=== PATIENT | male | born 1950 | race Caucasian/White ===

== ENCOUNTER → 2017-05-10 | Outpatient (CLI) | payer MEDICARE ==
--- NOTE | 2017-05-10 12:37 | ECHOS ---
STRESS ECHOCARDIOGRAM AGE: 66 SEX: M HT: 64 WT: 165 PROTOCOL: Stress Echo STAGE: 2 DURATION OF EXERCISE: 6:00 HEART RATE REST: 94 BLOOD PRESSURE REST: 140/67 MAXIMUM HEART RATE ACHIEVED: 133 MAXIMUM BLOOD PRESSURE: 202/93 85% MPHR: 129 100% MPHR: 152 METS: 7.1 INDICATIONS: CLINICAL INFORMATION: Patient was exercised for a total area of 6 minutes. A peak heart rate of 132 was achieved, maximum blood pressure of 202/93 mmHg was noted. The resting EKG shows normal sinus rhythm with normal SD interval and QRS duration and normal ST-T waves. Occasional PVCs were noted. The patient did not complain of any chest pain during the test. The base line echocardiographic images reveals normal left ventricular chamber size with normal left ventricular systolic function. In the immediate post exercise period and normal increase in the wall thickness and contractility was noted. IMPRESSION: 1. This stress echocardiographic study is negative for stress-induced ischemia. The patient's exercise tolerance is normal. 2. EKG portion of the stress test is not suggestive of ischemia. The patient did not complain of any anginal pain during the test. 3. Occasional PVCs were noted. MMODL / IJN: [id number] /
== END ==
LOC: RADNMMAIN 09:53
PROVIDERS: ATTEND Family Medicine
DX: R94.31 Abnormal electrocardiogram [ECG] [EKG] (principal)
CPT/HCPCS: 93017; 93350

== ENCOUNTER → 2018-02-03 | Outpatient (CLI) | payer MEDICARE ==
--- NOTE | 2018-02-03 13:39 | XR ---
EXAMINATION TYPE: XR lumbar spine 2 or 3V DATE OF EXAM: 02/03/2018 COMPARISON: 04/21/2017 HISTORY: 67-year-old male abnormalities of gait and mobility, lower back and pelvic pain. TECHNIQUE: 3 views FINDINGS: 5 lumbar type vertebral bodies. Undulating curvature could represent underlying scoliosis. There are calcifications on both sides of the abdomen, suspected to represent nephrolithiasis measuring up to 5 mm on the right and 6 m on the left. Mild to moderate disc space narrowing throughout and endplate spondylosis. Facet arthropathy lower james mbar spine with grade 1 anterolisthesis at L4-L5. Vertebral body heights are preserved and alignment is maintained. IMPRESSION: 1. Moderate multilevel degenerative disc disease. 2. Facet arthropathy mid to lower lumbar spine with grade 1 anterolisthesis at L4-L5. 3. No vertebral compression collapse. 4. Bilateral nephrolithiasis.
== END | disposition home or self-care (01) ==
LOC: RADXRMAIN 09:38
PROVIDERS: ATTEND Family Medicine
DX: M43.16 Spondylolisthesis, lumbar region (principal); M51.36 Other intervertebral disc degeneration, lumbar region; M46.96 Unspecified inflammatory spondylopathy, lumbar region
CPT/HCPCS: 72100

== ENCOUNTER 2018-07-05 06:38 | Day surgery (SDC) | payer MEDICARE ==
[2018-07-03 09:27] VITALS: BMI 28.3
[~2018-07-05 06:38] MED LIST: LACTATED RINGERS 1,000 ML IV SCH; LIDOCAINE 1% 20 ML VIAL (10MG/ML) FOR IV START INTRADERMA PRN
[2018-07-05 07:18] VITALS: RESP 18
[2018-07-05 07:19] VITALS: TEMP 98
--- NOTE | 2018-07-05 07:21 | P.GSHP ---
History of Present Illness H&P Date: 07/05/18 CHIEF COMPLAINT: Colon screen HISTORY OF PRESENT ILLNESS: The patient is a 68-year-old male who presents for colon screen. Lower endoscopy was offered for further evaluation and management. PAST MEDICAL HISTORY: Please see list. PAST SURGICAL HISTORY: Please see list. MEDICATIONS: Please see list. ALLERGIES: Please see list. SOCIAL HISTORY: No illicit drug use FAMILY HISTORY: No reports of Crohn disease or ulcerative colitis. REVIEW OF ORGAN SYSTEMS: CONSTITUTIONAL: No reports of fevers or chills. PHYSICAL EXAM: VITAL SIGNS: Stable GENERAL: Well-developed pleasant in no acute distress. HEENT: No scleral icterus. Extraocular movements grossly intact. Moist buccal mucosa. NECK: Supple without lymphadenopathy. CHEST: Unlabored respirations. Equal bilateral excursions. CARDIOVASCULAR: Regular rate and rhythm. Distal 2+ pulses. ABDOMEN: Soft, nontender, nondistended. MUSCULOSKELETAL: No clubbing, cyanosis, or edema. ASSESSMENT: 1. Colon screen. PLAN: 1. Recommend proceeding with a lower endoscopy Past Medical History Past Medical History: Coronary Artery Disease (CAD), Cancer, Diabetes Mellitus, Hearing Disorder / Deafness, Hyperlipidemia, Hypertension, Renal Disease Additional Past Medical History / Comment(s): "borderline diabetes",prostate CA 2008-raidiation pellets [email or web address] History of Any Multi-Drug Resistant Organisms: None Reported Past Surgical History: Hernia Repair Additional Past Surgical History / Comment(s): radiation pellets placed to prostate,hernia repairs x2 Past Anesthesia/Blood Transfusion Reactions: No Reported Reaction Smoking Status: Current some day smoker - Past Family History Mother Family Medical History: No Reported History Medications and Allergies Home Medications Medication Instructions Recorded Confirmed Type Aspirin 81 mg PO DAILY 07/03/18 07/03/18 History Benazepril HCl [Lotensin] 20 mg PO QAM 07/03/18 07/03/18 History Ezetimibe [Zetia] 10 mg PO DAILY 07/03/18 07/03/18 History Hydrochlorothiazide [Hydrodiuril] 12.5 mg PO DAILY 07/03/18 07/03/18 History Metoprolol Tartrate [Lopressor] 12.5 mg PO BID 07/03/18 07/03/18 History Simvastatin 20 mg PO HS 07/03/18 07/03/18 History amLODIPine BESYLATE 10 mg PO QAM 07/03/18 07/03/18 History Allergies Allergy/AdvReac Type Severity Reaction Status Date / Time No Known Allergies Allergy Verified 07/03/18 09:11 Surgical - Exam Vital Signs Pulse Resp BP Pulse Ox 73 18 138/82 97 07/05/18 07:17 07/05/18 07:17 07/05/18 07:17 07/05/18 07:17
[2018-07-05] MEDS ORDERED: PROPOFOL 10 MG/ML 20 ML VIAL IV ONE (07:27)
[2018-07-05] MEDS ORDERED: LACTATED RINGERS 1,000 ML IV ONE ×2 (07:28)
--- NOTE | 2018-07-05 07:50 | P.PCN ---
Date of Procedure: 07/05/18 Description of Procedure: PREOPERATIVE DIAGNOSIS: Colonoscopy screening, first POSTOPERATIVE DIAGNOSIS: Colonoscopy screening, first Sigmoid tubular adenomas Sigmoid diverticulosis Pandiverticulosis OPERATION: Colonoscopy to the ileocecal valve and appendiceal orifice. Colonoscopy with multiple hot snare polypectomies SURGEON: Erica Marshall MD. ANESTHESIA: MAC. INDICATIONS: The patient is a 68-year-old male who presents for his first colonoscopy screening. Benefits and risks were described and informed consent was obtained. DESCRIPTION OF PROCEDURE: The patient had undergone Gatorade, MiraLAX and Dulcolax prep. He had been brought into the operating room and laid in the left lateral decubitus position. After adequate intravenous sedation, the rectum was examined with 2% lidocaine jelly. No external hemorrhoids were encountered. The prostate was smooth and without nodularity. The rectal tone was within normal limits. No lesions were palpated in the rectal vault. An Olympus colonoscope was advanced until the ileocecal valve and appendiceal orifice were clearly viewed. The prep was excellent with visualization of the mucosal folds. The scope was removed with visualization of each mucosal fold. Scattered diverticulosis with severe sigmoid diverticulosis was encountered. Sigmoid colonic polyps were found and snare polypectomy. No evidence of focal colitis was found. Retroflexion of the scope demonstrated grade 1 internal hemorrhoids without active bleeding or inflammation. The colon was desufflated. The patient had tolerated the procedure well. Withdrawal time was over 6 minutes. FINDINGS: Internal hemorrhoids, grade 1 No external hemorrhoids, grade 2. No arteriovenous malformations. Pandiverticulosis with sigmoid diverticulosis Removal of 3 polyps: - Snare polypectomy 30 cm from the anal verge, 5 mm tubulovillous adenoma polyp , sigmoid colon - Snare polypectomy 40 cm from the anal verge, 8 mm tubulovillous adenoma polyp , descending colon No focal colitis. RECOMMENDATIONS: Given severity of tubular adenomas, recommend repeat colonoscopy 2 years, 2020. Plan - Discharge Summary New Discharge Prescriptions: No Action Hydrochlorothiazide [Hydrodiuril] 12.5 mg PO DAILY Aspirin 81 mg PO DAILY amLODIPine BESYLATE 10 mg PO QAM Ezetimibe [Zetia] 10 mg PO DAILY Benazepril HCl [Lotensin] 20 mg PO QAM Simvastatin 20 mg PO HS Metoprolol Tartrate [Lopressor] 12.5 mg PO BID Discharge Medication List Aspirin 81 mg PO DAILY 07/03/18 [History] Benazepril HCl [Lotensin] 20 mg PO QAM 07/03/18 [History] Ezetimibe [Zetia] 10 mg PO DAILY 07/03/18 [History] Hydrochlorothiazide [Hydrodiuril] 12.5 mg PO DAILY 07/03/18 [History] Metoprolol Tartrate [Lopressor] 12.5 mg PO BID 07/03/18 [History] Simvastatin 20 mg PO HS 07/03/18 [History] amLODIPine BESYLATE 10 mg PO QAM 07/03/18 [History]
[2018-07-05 07:53] LABS: Glucose,Whole Blood 124 mg/dL (75-99)
[2018-07-05 08:19] VITALS: BP 119/78; PULSE 66
== END 2018-07-05 08:53 | disposition home or self-care (01) ==
LOC: ORWHC2ENDO 06:38
PROVIDERS: ATTEND Surgery Plastic and Reconstructive Surgery
DX: D12.5 Benign neoplasm of sigmoid colon (principal); K57.30 Diverticulosis of large intestine without perforation or abscess without bleeding; K64.0 First degree hemorrhoids; I25.10 Atherosclerotic heart disease of native coronary artery without angina pectoris; R73.03 Prediabetes; H91.90 Unspecified hearing loss, unspecified ear; E78.5 Hyperlipidemia, unspecified; I10 Essential (primary) hypertension; N28.9 Disorder of kidney and ureter, unspecified; I25.2 Old myocardial infarction; F17.200 Nicotine dependence, unspecified, uncomplicated; Z79.82 Long term (current) use of aspirin; Z79.899 Other long term (current) drug therapy; Z85.46 Personal history of malignant neoplasm of prostate; Z92.3 Personal history of irradiation
CPT/HCPCS: 88305; 45385; J2704

== ENCOUNTER 2020-07-24 07:38 | Day surgery (SDC) | payer MEDICARE ==
[2020-07-22 13:29] VITALS: BMI 29.1
[~2020-07-24 07:38] MED LIST changes: +LIDOCAINE 1% (10MG/ML) FOR IV START INTRADERMA PRN; -LIDOCAINE 1% 20 ML VIAL (10MG/ML) FOR IV START INTRADERMA PRN
--- NOTE | 2020-07-24 08:21 | P.GSHP ---
History of Present Illness H&P Date: 07/24/20 CHIEF COMPLAINT: Colon screen HISTORY OF PRESENT ILLNESS: The patient is a 70-year-old male who presents for colon screen. Lower endoscopy was offered for further evaluation and management. PAST MEDICAL HISTORY: Please see list. PAST SURGICAL HISTORY: Please see list. MEDICATIONS: Please see list. ALLERGIES: Please see list. SOCIAL HISTORY: No illicit drug use FAMILY HISTORY: No reports of Crohn disease or ulcerative colitis. REVIEW OF ORGAN SYSTEMS: CONSTITUTIONAL: No reports of fevers or chills. PHYSICAL EXAM: VITAL SIGNS: Stable GENERAL: Well-developed pleasant in no acute distress. HEENT: No scleral icterus. Extraocular movements grossly intact. Moist buccal mucosa. NECK: Supple without lymphadenopathy. CHEST: Unlabored respirations. Equal bilateral excursions. CARDIOVASCULAR: Regular rate and rhythm. Distal 2+ pulses. ABDOMEN: Soft, nontender, nondistended. MUSCULOSKELETAL: No clubbing, cyanosis, or edema. ASSESSMENT: 1. Colon screen. PLAN: 1. Recommend proceeding with a lower endoscopy Past Medical History Past Medical History: Coronary Artery Disease (CAD), Cancer, Diabetes Mellitus, Hearing Disorder / Deafness, Hyperlipidemia, Hypertension, Renal Disease Additional Past Medical History / Comment(s): "borderline diabetes",prostate CA 2008-raidiation pellets [email or web address] History of Any Multi-Drug Resistant Organisms: None Reported Past Surgical History: Hernia Repair Additional Past Surgical History / Comment(s): radiation pellets placed to prostate,hernia repairs x2 Past Anesthesia/Blood Transfusion Reactions: No Reported Reaction Past Psychological History: No Psychological Hx Reported Smoking Status: Former smoker Past Alcohol Use History: None Reported Additional Past Alcohol Use History / Comment(s): quit smoking cigarettes 40 years, smokes marijuana daily Past Drug Use History: Marijuana - Past Family History Mother Family Medical History: No Reported History Medications and Allergies Home Medications Medication Instructions Recorded Confirmed Type Aspirin 81 mg PO DAILY 07/03/18 07/22/20 History Benazepril HCl [Lotensin] 20 mg PO QAM 07/03/18 07/22/20 History Ezetimibe [Zetia] 10 mg PO DAILY 07/03/18 07/22/20 History Metoprolol Tartrate [Lopressor] 12.5 mg PO BID 07/03/18 07/22/20 History Simvastatin 20 mg PO HS 07/03/18 07/22/20 History amLODIPine BESYLATE 10 mg PO QAM 07/03/18 07/22/20 History hydroCHLOROthiazide [Hydrodiuril] 12.5 mg PO DAILY 07/03/18 07/22/20 History Allergies Allergy/AdvReac Type Severity Reaction Status Date / Time No Known Allergies Allergy Verified 07/22/20 12:59
[2020-07-24 08:38] VITALS: TEMP 97.2
[2020-07-24] MEDS ORDERED: PROPOFOL 10 MG/ML 20 ML VIAL IV ONE (09:35)
--- NOTE | 2020-07-24 10:03 | P.PCN ---
Date of Procedure: 07/24/20 Description of Procedure: PREOPERATIVE DIAGNOSIS: Personal history colon polyps Colonoscopy screening. POSTOPERATIVE DIAGNOSIS: Personal history colon polyps Colonoscopy screening. OPERATION: Colonoscopy to the cecum, ileocecal valve and appendiceal orifice. SURGEON: Erica Marshall MD. ANESTHESIA: MAC. INDICATIONS: The patient is a 70-year-old male who presents for colonoscopy screening. He has history of polyps. Last colonoscopy 3 years ago. Benefits and risks were described and informed consent was obtained. DESCRIPTION OF PROCEDURE: The patient had undergone Suprep. She had been brought into the operating room and laid in the left lateral decubitus position. After adequate intravenous sedation, the rectum was examined with 2% lidocaine jelly. No external hemorrhoids were encountered. The prostate was unremarkable. The rectal tone was within normal limits. No lesions were palpated in the rectal vault. An Olympus colonoscope was advanced until the cecum, ileocecal valve and appendiceal orifice were clearly viewed. The prep was poor limiting view of the mucosa. Scattered sigmoid diverticulosis was encountered. The sigmoid colon was highly redundant and abdominal wall pressure to advance the scope. No large colonic polyps were found. No evidence of focal colitis was found. Retroflexion of the scope demonstrated grade 1 internal hemorrhoids without active bleeding or inflammation. The colon was desufflated. The patient had tolerated the procedure well. Withdrawal time was over 6 minutes. FINDINGS: Aronchick preparation quality scale 3 (1-5) with less than adequate prep limiting complete review of mucosa Internal hemorrhoids, grade 1 No external prolapsed hemorrhoids. No arteriovenous malformations. No adenomatous polyps. No focal colitis. Sigmoid diverticulosis Redundant sigmoid colon RECOMMENDATIONS: Lower endoscopy in 3 years, 2023 Recommend more effective bowel prep Plan - Discharge Summary Discharge Rx Participant: No New Discharge Prescriptions: Continue hydroCHLOROthiazide [Hydrodiuril] 12.5 mg PO DAILY Aspirin 81 mg PO DAILY amLODIPine BESYLATE 10 mg PO QAM Ezetimibe [Zetia] 10 mg PO DAILY Benazepril HCl [Lotensin] 20 mg PO QAM Simvastatin 20 mg PO HS Metoprolol Tartrate [Lopressor] 12.5 mg PO BID Discharge Medication List Aspirin 81 mg PO DAILY 07/03/18 [History] Benazepril HCl [Lotensin] 20 mg PO QAM 07/03/18 [History] Ezetimibe [Zetia] 10 mg PO DAILY 07/03/18 [History] Metoprolol Tartrate [Lopressor] 12.5 mg PO BID 07/03/18 [History] Simvastatin 20 mg PO HS 07/03/18 [History] amLODIPine BESYLATE 10 mg PO QAM 07/03/18 [History] hydroCHLOROthiazide [Hydrodiuril] 12.5 mg PO DAILY 07/03/18 [History] Follow up Appointment(s)/Referral(s): Erica Marshall MD [STAFF PHYSICIAN] - As Needed Patient Instructions/Handouts: Diverticulosis (GEN), Diverticulosis Diet (GEN) Activity/Diet/Wound Care/Special Instructions: Repeat colonoscopy in 3 years, 2023 Discharge Disposition: HOME SELF-CARE
[2020-07-24 10:13] VITALS: RESP 16
[2020-07-24 10:40] VITALS: BP 132/81; PULSE 67
== END 2020-07-24 10:55 | disposition home or self-care (01) ==
LOC: ORWHC2ENDO 07:38
PROVIDERS: ATTEND Surgery Plastic and Reconstructive Surgery
DX: Z12.11 Encounter for screening for malignant neoplasm of colon (principal); K64.0 First degree hemorrhoids; Q43.8 Other specified congenital malformations of intestine; Z86.010 Personal history of colon polyps; Z79.82 Long term (current) use of aspirin; Z79.899 Other long term (current) drug therapy; I10 Essential (primary) hypertension; I25.10 Atherosclerotic heart disease of native coronary artery without angina pectoris; E78.5 Hyperlipidemia, unspecified; E11.9 Type 2 diabetes mellitus without complications; Z85.46 Personal history of malignant neoplasm of prostate; H91.90 Unspecified hearing loss, unspecified ear; Z92.3 Personal history of irradiation; Z98.890 Other specified postprocedural states; Z87.891 Personal history of nicotine dependence
CPT/HCPCS: J2704; G0105; 45378

== ENCOUNTER → 2020-08-12 | Outpatient (CLI) | payer MEDICARE ==
[2020-08-12 12:15] LABS: African American GFR (CKD) >90 (>60 ml/min/1.73 sqM); Blood Urea Nitrogen 15 mg/dL (9-20); Non-African American GFR(CKD) 90 (>60 ml/min/1.73 sqM)
--- NOTE | 2020-08-12 14:12 | CT ---
EXAMINATION TYPE: CT abdomen pelvis w con DATE OF EXAM: 08/12/2020 COMPARISON: None HISTORY: LLQ and lower left flank pain CT DLP: 1282.7 mGycm Automated exposure control for dose reduction was used. CONTRAST: CT scan of the abdomen pelvis is performed with IV Contrast, patient injected with 100 mL of Isovue 3 00. FINDINGS- LUNG BASES-or subsegmental changes at both lung bases most typical of atelectasis. Heart is enlarged and there is dense coronary artery atherosclerotic changes. 2 mm nodule axial image 6 series 4 2 smal l to characterize. LIVER/GB- No gross abnormality is appreciated. PANCREAS-there are calcifications involving the pancreas correlate for history of chronic pancreatiti s.. SPLEEN- No gross abnormality is seen. ADRENALS-mild thickening of the right adrenal gland with a 8 mm nodule involving the left adrenal gla nd too small to characterize but likely related to an adrenal benign adenoma.. KIDNEYS/BLADDER-no hydronephrosis. There are multiple hypodense lesions involving the kidneys bilater ally the majority of which are too small to characterized largest of which measures 15 Hounsfield uni ts and 2.2 cm suggestive of a simple cyst. There are multiple bilateral renal calculi all measuring l ess than 5 mm.. BOWEL-gas pattern is nonspecific with no evidence of obstruction. There are scattered diverticula see n with no diagnostic evidence of diverticulitis. Localized area of narrowing of the sigmoid colon may be related to peristalsis. If there is concern for mucosal lesion correlate with direct visualizatio n.. LYMPH NODES- No greater than 1cm abdominal or pelvic lymph nodes areappreciated. OSSEOUS STRUCTURES-hypertrophic and degenerative changes of the spine.. OTHER- evidence of prostate seeding are noted correlate clinically. Atherosclerotic change of the ao rta without evidence of aneurysm. Bilateral fat-containing inguinal hernia. IMPRESSION- 1. Multiple sub-5 mm bilateral renal calculi with no hydronephrosis. Multiple hypodense lesions are t oo small to characterize but statistically most likely related to simple cyst. 2. Correlate for chronic pancreatitis. 3. Diverticulosis with no CT evidence of diverticulitis. Localized area of narrowing of the sigmoid c olon may be related to peristalsis rather than mucosal lesion correlate with direct visualization as clinically warranted. 4. Cardiomegaly with coronary artery atherosclerotic changes. 3 5 2 mm subpleural nodule right middle lobe axial image 6 2 small to characterize recommend 12 month follow-up CT scan to confirm stability .
== END | disposition home or self-care (01) ==
LOC: RADCTMAIN 11:34
PROVIDERS: ATTEND Surgery Plastic and Reconstructive Surgery
DX: K57.90 Diverticulosis of intestine, part unspecified, without perforation or abscess without bleeding (principal); N20.0 Calculus of kidney; K56.699 Other intestinal obstruction unspecified as to partial versus complete obstruction
CPT/HCPCS: 82565; 84520; 74177; Q9967

== ENCOUNTER → 2024-04-05 | Outpatient (CLI) | payer OTHER ==
--- NOTE | 2024-04-05 13:06 | US ---
EXAMINATION TYPE: US scrotum with doppler. DATE OF EXAM: 04/05/2024 COMPARISON: NONE CLINICAL INDICATION: Male, 73 years old with history of N50.819 TESTICULAR PAIN; left scrotal pain fo r years, no injury, states small wound will reopen on left side throughout the year and has foul smel l, no wound today TECHNIQUE: Grayscale, color Doppler and spectral Doppler imaging of the scrotum. FINDINGS: EXAM MEASUREMENTS: TESTICLES: Right Testicle: 3.2 x 2.5 x 1.8 cm Left Testicle: 3.6 x 2.2 x 2.1 cm EPIDIDYMIS HEAD: Right Epididymis: 1.3 cm Left Epididymis: 1.5 cm Doppler performed to assess for testicular vascularity; good bilateral color flow and waveforms are s een. There is no evidence of testicular torsion. Presence of hydroceles: bilateral, more on the right then left. The left demonstrates mobile complex debris. Presence of varicoceles: no IMPRESSION: 1. No evidence of testicular torsion or mass. 2. Bilateral hydroceles with right greater than left. Left hydrocele is complex with debris. [facility], , 04/05/2024 1:04 PM
== END | disposition home or self-care (01) ==
LOC: RADUSWWP 12:21
PROVIDERS: ATTEND Family Medicine
CPT/HCPCS: 76870; 93975

== ENCOUNTER → 2024-12-18 | Outpatient (CLI) | payer MEDICARE ==
--- NOTE | 2024-12-18 15:52 | CT ---
EXAMINATION TYPE: CT abdomen pelvis wo con CT DLP: 528.9 mGycm, Automated exposure control for dose reduction was used. DATE OF EXAM: 12/18/2024 3:23 PM COMPARISON: CT abdomen pelvis 08/12/2020, scrotal ultrasound 04/05/2024 CLINICAL INDICATION:Male, 74 years old with history of N20.0 KIDNEY STONE; left testicle cyst, h/o ki dney stones TECHNIQUE: Standard CT of the abdomen and pelvis without IV or oral contrast. Lack of IV or oral co ntrast limits evaluation of solid and hollow organ viscera. Coronal and sagittal reformats were perfo rmed. FINDINGS: LOWER CHEST: Visualized lung bases are clear. Borderline prominent heart size. No pericardial effusio n. ABDOMEN LIVER: Unremarkable noncontrast appearance GALLBLADDER AND BILE DUCTS: Unremarkable noncontrast appearance PANCREAS: Several coarse parenchymal calcifications noted. No surrounding inflammatory changes are fl uid collections. No ductal dilatation is identified. SPLEEN: Unremarkable. ADRENAL GLANDS: Similar mild thickening of both adrenal glands possibly related to hyperplasia. No fo max lesion identified. KIDNEYS AND URETERS: No evidence of hydronephrosis. No hydroureter or ureteral calculus identified. A pproximately 10 nonobstructing right renal calculi with largest measuring up to 6 mm. Approximately 7 nonobstructing left renal calculi with largest measuring up to 7 mm. Multiple bilateral renal cysts identified. No follow-up recommended. Left extrarenal prominent pelvis identified. PELVIS BLADDER: Underdistended with circumferential wall thickening measuring up to 9 mm. REPRODUCTIVE: Brachytherapy seeds within the prostate gland. ABDOMEN & PELVIS STOMACH AND BOWEL: Stomach and duodenum are unremarkable. Scattered distal colonic diverticula withou t evidence for acute diverticulitis. No focal bowel wall thickening or surrounding inflammatory espinosa es. The appendix is within normal limits. No evidence of bowel obstruction. PERITONEUM: No evidence of pneumoperitoneum or free fluid. VASCULATURE: [id number] atherosclerotic calcifications are present throughout the abdominal aor ta and its branches. No evidence of aortic aneurysm. MUSCULOSKELETAL: No acute osseous abnormalities. Mild disc degeneration changes are present throughou t the thoracolumbar spine. LYMPH NODES: No gross evidence for lymphadenopathy. SOFT TISSUE/ABDOMINAL WALL: Small fat filled left inguinal hernia. Patulous fat filled right inguinal ring redemonstrated. IMPRESSION: 1. No CT evidence for obstructive uropathy. 2. Circumferential wall thickening of the underdistended urinary bladder. Correlate with urinalysis f or cystitis versus underdistention. 3. Multiple nonobstructing bilateral renal calculi. 4. Multiple bilateral simple appearing renal cysts. No follow-up recommended. 5. Colonic diverticulosis without evidence for acute diverticulitis. 6. Findings consistent with chronic pancreatitis. [facility], , 12/18/2024 3:50 PM
== END | disposition home or self-care (01) ==
LOC: RADCTMAIN 14:25
PROVIDERS: ATTEND Urology
DX: N20.0 Calculus of kidney (principal); N28.1 Cyst of kidney, acquired; K57.30 Diverticulosis of large intestine without perforation or abscess without bleeding
CPT/HCPCS: 74176

== ENCOUNTER → 2025-01-16 | Outpatient (CLI) | payer OTHER ==
[2025-01-16 15:45] LABS: Basophils # (A) 0.06 X 10*3/uL (0.00-0.10); Basophils % (A) 0.7 %; Eosinophils # (A) 0.52 X 10*3/uL (0.04-0.35); Eosinophils % (A) 6.2 %; HCT 44.9 % (39.6-50.0); HGB 14.7 g/dL (13.0-17.0); Immature Grans, Automated 0.40 %; Lymphocytes # (A) 1.61 X 10*3/uL (0.90-5.00); Lymphocytes % (A) 19.2 %; MCH 29.9 pg (27.0-32.0); MCHC 32.7 g/dL (32.0-37.0); MCV 91.3 FL (80.0-97.0); Monocytes # (A) 0.75 X 10*3/uL (0.20-1.00); Monocytes % (A) 8.9 %; NRBC Per 100 WBC 0 X 10*3/uL (0.00-0.01); Neutrophils # (A) 5.42 X 10*3/uL (1.80-7.70); Neutrophils % (A) 64.6 %; Platelet Count 424 X 10*3/uL (140-440); RBC 4.92 X 10*6/uL (4.40-5.60); RDW 14.7 % (11.5-14.5); WBC 8.39 X 10*3/uL (4.50-10.00)
[2025-01-16 15:59] LABS: Anion Gap 12.90 mmol/L (4.00-12.00); BUN/Creat Ratio 20.11 Ratio (12.00-20.00); Bilirubin,Urine Negative (Negative); Blood Urea Nitrogen 18.1 mg/dL (9.0-27.0); Blood,Urine Large (Negative); Calcium 9.4 mg/dL (8.7-10.3); Carbon Dioxide 22.1 mmol/L (21.6-31.8); Chloride 109 mmol/L (96-109); Color,Urine Yellow (Yellow); Glucose 146 mg/dL (70-110); Ketones,Urine Negative (Negative); Nitrite,Urine Negative (Negative); PH, Urine 6.0; Potassium 4.3 mmol/L (3.5-5.5); Sodium 144 mmol/L (135-145); Specific Gravity,Urine 1.015 (1.001-1.030); Urobilinogen,Urine 1.0 E.U./DL
[2025-01-16 16:23] LABS: Bacteria,Urine None Seen (None Seen); Calcium Oxalate Crystals,Urine Present (None Seen)
== END | disposition home or self-care (01) ==
LOC: LABPAT 10:11
PROVIDERS: ATTEND Urology
DX: Z01.812 Encounter for preprocedural laboratory examination (principal); N20.0 Calculus of kidney
CPT/HCPCS: 80048; 81001; 85025; 87086

== ENCOUNTER 2025-01-22 10:18 | Day surgery (SDC) | payer MEDICARE, OTHER ==
[2025-01-17 12:09] VITALS: BMI 26.6
--- NOTE | 2025-01-22 09:43 | P.HPIHPCON ---
History of Present Illness H&P Date: 01/22/25 Chief Complaint: Bilateral kidney stones This is a 74-year-old male with history of bilateral flank pain, underwent a CT abdomen pelvis that showed significant stone burden in the bilateral kidneys. I did discuss with him the pain could be secondary to musculoskeletal versus renal colic. Option of bilateral ureteroscopy with holmium laser was discussed with him. He is aware of the risk which include but not limited to bleeding, infection, injury to the kidney. Discussed the potential of persistent pain even with stone removal. He understood all the risk and agreed to proceed Consent for Procedure: I have explained the operation/procedure to the patient, including the risks, benefits, side effects, alternative therapies (including not receiving the proposed treatment or service), the likelihood of the patient achieving his/her goals, and potential recuperation problems for the procedure/sedation/analgesia, as well as any blood products, if indicated. I also explained to the patient the risks, benefits and side effects of the alternatives, as well as the risks related to not receiving the proposed procedure, care, treatment, or services. Past Medical History Past Medical History: Coronary Artery Disease (CAD), Cancer, Diabetes Mellitus, Hearing Disorder / Deafness, Hyperlipidemia, Hypertension, Myocardial Infarction ([place]), Renal Disease Additional Past Medical History / Comment(s): "borderline diabetes",prostate CA 2007-radiation pellets [email or web address], KIDNEY STONES. "I had a heart attack years ago, 40-50's years ago." Arthritis Last Myocardial Infarction Date:: unknown History of Any Multi-Drug Resistant Organisms: None Reported Past Surgical History: Hernia Repair Additional Past Surgical History / Comment(s): radiation pellets placed to prostate,hernia repairs x2, COLONOSCOPY Past Anesthesia/Blood Transfusion Reactions: No Reported Reaction Smoking Status: Former smoker - Past Family History Mother Family Medical History: Liver Disease Father Family Medical History: Cancer Medications and Allergies Home Medications Medication Instructions Recorded Confirmed Type Aspirin 81 mg PO DAILY 07/03/18 01/17/25 History Benazepril HCl [Lotensin] 20 mg PO QAM 07/03/18 01/17/25 History Ezetimibe [Zetia] 10 mg PO DAILY 07/03/18 01/17/25 History Metoprolol Tartrate [Lopressor] 12.5 mg PO BID 07/03/18 01/17/25 History Simvastatin 20 mg PO HS 07/03/18 01/17/25 History amLODIPine BESYLATE 10 mg PO QAM 07/03/18 01/17/25 History Allergies Allergy/AdvReac Type Severity Reaction Status Date / Time No Known Allergies Allergy Verified 01/17/25 11:41 Surgical - Exam - General no distress, no pain - Eyes normal ocular movement, no pale - ENT normal nares, normal mucosa - Respiratory normal expansion, normal respiratory effort - Abdomen Abdomen: soft, non tender, no distended Assessment and Plan Assessment: OR for bilateral ureteroscopy, holmium laser lithotripsy, stone basketing and stent insertion
--- NOTE | 2025-01-22 10:51 | XR ---
EXAMINATION TYPE: XR KUB DATE OF EXAM: 01/22/2025 COMPARISON: 12/18/2024 CLINICAL INDICATION: Male, 74 years old with history of Cystoscopy/Lithotripsy; TECHNIQUE: XR KUB views of the abdomen. FINDINGS: The osseous structures are intact. The bowel gas pattern is nonspecific. Left basilar atelectasis. S urgical change of the prostate. Calcifications in the pelvis are likely vascular. Generalized deminer alization. Bilateral hip arthropathy. There are multiple bilateral renal calculi measuring up to 5 mm. Estimated approximately 5-6 calcific ations on the right and 9 calcifications on the left. IMPRESSION: 1. Bilateral nephrolithiasis.. [facility], , 01/22/2025 10:48 AM
[2025-01-22] MEDS ORDERED: HYDROmorphone 0.5 MG/0.5 ML SYRINGE IVP PRN (11:01)
[2025-01-22] MEDS ORDERED: MIDAZOLAM 2 MG/2 ML VIAL IV PRN (11:01)
[2025-01-22] MEDS: IV FLUID CONTINUATION 1,000 ML IV ONE ×2 (11:18→15:21)
[2025-01-22 11:27] LABS: Glucose,Whole Blood 116 mg/dL (70-110)
[2025-01-22] MEDS: ONDANSETRON 4 MG/2 ML VIAL IVP ONE (11:27)
[2025-01-22] MEDS: LACTATED RINGERS 1,000 ML IV SCH (11:27)
[2025-01-22] MEDS: DEXAMETHASONE SOD PHOSPHATE 4 MG/ML 1 ML VIAL IV ONE (11:27)
[2025-01-22] MEDS ORDERED: LIDOCAINE 1% INJ 10MG/ML (20 ML MDV) ONE (12:11)
[2025-01-22] MEDS ORDERED: MIDAZOLAM 2 MG/2 ML VIAL ONE (12:11)
[2025-01-22] MEDS ORDERED: PROPOFOL 10 MG/ML 20 ML VIAL IV ONE (12:11)
[2025-01-22] MEDS ORDERED: fentaNYL (PF) 50 MCG/ML 2 ML AMP ONE (12:11)
[2025-01-22] MEDS ORDERED: ePHEDrine 50 MG/ML 1 ML VIAL ONE (12:11)
[2025-01-22] MEDS: IOPAMIDOL-370 100ML BTL MISCELLANE ONE (12:58)
--- NOTE | 2025-01-22 13:49 | FL ---
EXAMINATION TYPE: FL urography retrograde DATE OF EXAM: 01/22/2025 COMPARISON: NONE HISTORY: Fluoroscopy TECHNIQUE: Fluoroscopy. FINDINGS: Fluoroscopic guidance was provided during procedure A total of 87 seconds of fluoroscopic time was utilized during the procedure and 6 spot images was acquired. Total dose area product (DAP) in uGy*m?, mGy*cm? (or similar): 0.50416. IMPRESSION: As Above. [facility], , 01/22/2025 1:46 PM
[2025-01-22 13:56] VITALS: RESP 16; TEMP 97.2
--- NOTE | 2025-01-22 15:39 | P.OP ---
Date of Procedure: 01/22/25 Preoperative Diagnosis: Bilateral kidney stones Postoperative Diagnosis: Same Procedure(s) Performed: Cystoscopy, bilateral ureteroscopy, holmium laser lithotripsy, stone basketing and stent insertion Implants: 6 [place] by 24 cm stent in the bilateral ureter Anesthesia: DARIO Surgeon: Roman Valerio Estimated Blood Loss (ml): 5 Pathology: other (Bilateral kidney stone) Condition: stable Disposition: PACU Indications for Procedure: This is a 74-year-old male with history of bilateral flank pain, underwent a CT abdomen pelvis that showed significant stone burden in the bilateral kidneys. I did discuss with him the pain could be secondary to musculoskeletal versus renal colic. Option of bilateral ureteroscopy with holmium laser was discussed with him. He is aware of the risk which include but not limited to bleeding, infection, injury to the kidney. Discussed the potential of persistent pain even with stone removal. He understood all the risk and agreed to proceed Operative Findings: Multiple stones in the right kidney, patient had a very narrowed calyceal infundibulum, some of the calyces could not be completely evaluated given the significant narrowing. A stone in the lower pole I was only able to partially visualize and fragment given the acute angle of the lower pole Description of Procedure: Patient brought to the operating room, general anesthesia was induced. He was prepped and draped in sterile fashion placed in a dorsolithotomy position. Cystoscopy fitted 21 [place] sheath was inserted per urethra, cystoscopy was performed showed no abnormality within the bladder, of note the prostate was small nonocclusive. Attention was then carried to the right ureteral orifice, the stent was grasped and removed to the meatus, sensor wire was advanced through the stent and the stent was removed with a wire in place. Under fluoroscopy an 1113 [place] access sheath was passed over the wire into the proximal ureter. The flexible ureteroscope was inserted to the access sheath, renoscopy was performed showed multiple small stones within the kidney which were fragmented, stone fragments were removed using a stone basket. Repeat renoscopy showed no additional stone fragments, but of note patient had multiple narrowed infundibulum along the mid and lower pole, I was unable to completely evaluate those calyces, I did do a retrograde pyelogram which showed no filling defects within the calyces, of note patient also had a radiopaque calcification that were seen on fluoroscopy but they appear to be outside the calyces. At this time pullback ureteroscopy was performed showed no injury to the ureter or any ureteral stones, as ureteroscope was withdrawn a sensor wire was advanced through. Next a ureteral stent was passed over the wire. The proximal curl was visualized on fluoroscopy and the distal curl was visualized in its cystoscope. The stent was left on a string and taped to the patient penis. At this time attention was carried to the left side, the cystoscope was reinserted and the stent was grasped and removed to the meatus. Next a wire was advanced under fluoroscopy through the stent and up into the left renal shadow. The stent was removed with the wire in place. Next under fluoroscopy 1113 [place] access sheath was passed over the wire into the proximal ureter. The flexible ureteroscope was inserted to the access sheath, renoscopy was performed which showed a small stone in the mid midpole which was fragmented. An additional large stone in the lower pole could only be partially visualized, I attempted to basket the stone out of the lower pole but was unable to secondary to the narrowed infundibulum. I was able to partially fragment the stone, but the stone could not be completely fragmented or basketed out of the lower pole ely pite multiple attempts. There were multiple radiopaque densities within the kidney but they appear to be outside the calyces, of note there was also an additional stone in the upper pole along the very narrowed infundibulum, I attempted to pass the scope through the infundibulum but was unable to. At this time repeat renoscopy showed no additional stones within the renal pelvis or within the calyces that could be evaluated. Pullback ureteroscopy was performed showed no injury to the ureter and ureteral stone, as the ureteroscope was withdrawn a sensor wire was advanced through. Next a ureteral stent was passed over the wire, the proximal curl was visualized on fluoroscopy and the distal curl was visualized in the cystoscope. The stent was left on a string and taped to the patient penis. Patient was awakened from anesthesia and taken to recovery in stable condition
[2025-01-22 16:17] VITALS: BP 155/92; PULSE 74
== END 2025-01-22 16:10 | disposition home or self-care (01) ==
LOC: OR 10:18
PROVIDERS: ATTEND Urology
DX: N20.0 Calculus of kidney (principal); I25.10 Atherosclerotic heart disease of native coronary artery without angina pectoris; I25.2 Old myocardial infarction; E11.9 Type 2 diabetes mellitus without complications; E78.5 Hyperlipidemia, unspecified; I10 Essential (primary) hypertension; M19.90 Unspecified osteoarthritis, unspecified site; H91.90 Unspecified hearing loss, unspecified ear; Z98.890 Other specified postprocedural states; Z87.891 Personal history of nicotine dependence; Z79.82 Long term (current) use of aspirin; Z79.899 Other long term (current) drug therapy
CPT/HCPCS: 82365; 74420; 74018; 52356; J1100; J0690; J2405; Q9967